=== PATIENT | male | born 1945 | race Caucasian/White ===

== ENCOUNTER 2024-03-18 13:59 | Outpatient (CLI) | payer MEDICARE ==
[2024-03-18 15:26] LABS: Anion Gap 14 mmol/L (10-20); BUN (Urea Nitrogen) 23 mg/dL (8.4-25.7); Calc. Creatinine Clearance 0 mL/min (70-130); Calcium 9.8 mg/dL (7.8-10.44); Carbon Dioxide 25 mmol/L (23-31); Chloride 108 mmol/L (98-107); Estimated GFR 38; Glucose 77 mg/dL (83-110); Sodium 142 mmol/L (136-145)
== END 2024-03-18 14:00 | disposition home or self-care (01) ==
LOC: LABBT 13:59
PROVIDERS: ATTEND Thoracic Surgery (Cardiothoracic Vascular Surgery)
DX: Z01.812 Encounter for preprocedural laboratory examination (principal); Z45.89 Encounter for adjustment and management of other implanted devices
CPT/HCPCS: 80048

== ENCOUNTER 2024-03-24 08:23 | Day surgery (SDC) | payer MEDICARE ==
[2024-03-18 14:20] VITALS: BMI 32.1
== END 2024-03-24 13:35 | disposition home or self-care (01) ==
LOC: SDC 08:23
PROVIDERS: ATTEND Thoracic Surgery (Cardiothoracic Vascular Surgery)
PROC: 06PY0DZ Removal of Intraluminal Device from Lower Vein, Open Approach (ICD-10-PCS; principal; 2024-03-24)
DX: Z45.89 Encounter for adjustment and management of other implanted devices (principal); I10 Essential (primary) hypertension; E78.5 Hyperlipidemia, unspecified; Z79.899 Other long term (current) drug therapy; Z96.643 Presence of artificial hip joint, bilateral; Z90.89 Acquired absence of other organs; Z88.0 Allergy status to penicillin; Z88.5 Allergy status to narcotic agent; Z88.6 Allergy status to analgesic agent; Z91.048 Other nonmedicinal substance allergy status
CPT/HCPCS: 37193; C1769 ×2; C1773; C1894; J2250; J3010; 99152; Q9967

== ENCOUNTER 2024-10-07 12:25 | Outpatient (CLI) | payer MEDICARE | END 2024-10-07 12:26 | disposition home or self-care (01) | LOC: MRI 12:25 | PROVIDERS: ATTEND Surgery | DX: M47.24 Other spondylosis with radiculopathy, thoracic region (principal); M47.22 Other spondylosis with radiculopathy, cervical region; M48.02 Spinal stenosis, cervical region; M25.78 Osteophyte, vertebrae; R93.7 Abnormal findings on diagnostic imaging of other parts of musculoskeletal system | CPT/HCPCS: 36415; 72156; 72157; 82565 ==